=== PATIENT | female | born 1940 | race Caucasian/White ===

== ENCOUNTER 2021-12-29 19:03 | Inpatient (IN) | payer OTHER ==
[~2021-12-29] VITALS: Ht 165.1 cm; Wt 61.2 kg
[2021-12-29 19:08] VITALS: BP_SYST 96
--- NOTE | 2021-12-29 19:27 | NUR ---
Placed in room 02 . Placed on potline monitor, blood pressure machine and pulse oximeter. To gown for exam. Side rails up. Report given to MARGOTH BRUNNER
--- NOTE | 2021-12-29 19:32 | NUR ---
PT BIBA from home with c/o SOB. Pt states she has no pain. Pt reports swelling in the left arm with no pain. Reports a recent hospitalization with UTI and states shes "not urinating correctly." Pt shows no signs of resp distress, no increased work of breathing, and chest rise and fall is equal. Pt reports hx of HTN and has a pace-maker. Safety precautions are in place, and connected to monitor.
--- NOTE | 2021-12-29 19:32 | NUR ---
Dr. Valerio at bedside with pt for evaluation.
[2021-12-29 20:21] LABS: BASOPHILS % (AUTO) 0.2 % (0.0-2.0); EOSINOPHILS % (AUTO) 0.5 % (0.0-4.0); HEMATOCRIT 29.5 % (36-48); HEMOGLOBIN 10.2 g/dL (12.0-16.0); LYMPHOCYTES # (AUTO) 0.9 K/uL (1.0-5.5); LYMPHOCYTES % (AUTO) 15.4 % (20.5-51.5); MEAN CORPUSCULAR HEMOGLOBIN 33 pg (27-31); MEAN CORPUSCULAR HGB CONC 34 % (32-36); MEAN CORPUSCULAR VOLUME 96 fL (79.0-98.0); MONOCYTES # (AUTO) 0.6 K/uL (0.0-1.0); MONOCYTES % (AUTO) 10.6 % (1.7-9.3); NEUTROPHILS # (AUTO) 4.4 K/uL (1.8-7.7); NEUTROPHILS % (AUTO) 73.3 % (40.0-70.0); PLATELET COUNT (AUTO) 199 K/uL (130-430); RED BLOOD CELL COUNT(AUTO) 3.09 MIL/uL (4.2-6.2); RED CELL DISTRIBUTION WIDTH 15.5 % (9.0-15.0); WHITE BLOOD COUNT (AUTO) 5.9 K/uL (4.8-10.8)
--- NOTE | 2021-12-29 20:21 | NUR ---
Pt resting in bed with eyes open. Pt O2 sat at 99% on RA. Pt speaking in full sentences, no signs of resp distress. Safety precautions in place.
[2021-12-29 20:38] LABS: ALANINE AMINOTRANSFERASE 162 U/L (12-78); ALBUMIN 3.9 g/dL (3.4-4.8); ANION GAP 12 (5-15); ASPARTATE AMINOTRANSFERASE 147 U/L (10-37); CALCIUM 9.4 mg/dL (8.4-11.0); CREATININE 2.43 mg/dL (0.55-1.30); GLUCOSE 97 mg/dL (70-99); SODIUM SERUM 120 mmol/L (136-145); UREA NITROGEN, BLOOD 33 mg/dL (8-21)
--- NOTE | 2021-12-29 20:40 | NUR ---
[facility] lab values rec and Dr. Valerio notified.
[2021-12-29 20:41] LABS: CHLORIDE 84 mmol/L (98-107)
[2021-12-29] MEDS ORDERED: ASPIRIN 325 MG TABLET PO ONE (21:00)
[2021-12-29] MEDS ORDERED: SPIR25TA6 PO (21:07)
[2021-12-29] MEDS ORDERED: ZOLP5TAB7 PO (21:07)
[2021-12-29] MEDS ORDERED: METO50TA7 PO (21:07)
[2021-12-29] MEDS ORDERED: FURO-149 PO (21:07)
[2021-12-29] MEDS ORDERED: HYDR-4038 PO (21:07)
[2021-12-29] MEDS ORDERED: APIX2.5T PO (21:07)
[2021-12-29] MEDS ORDERED: FAMO20TA8 PO (21:07)
[2021-12-29] MEDS ORDERED: ISOS5TAB3 PO (21:07)
[2021-12-29] MEDS ORDERED: SODI1TAB3 PO (21:07)
--- NOTE | 2021-12-29 21:07 | NUR ---
Admit bed requested Patient will be admitted to care of . Admitted to TELEMETRY unit. Diagnosis CHEST PAIN AND SHORTNESS OF BREATH Inpatient (Yes or No) YES Observation (Yes or No) NO Orientation concerns or request close to nursing station (Yes or No) NO Covid Status PENDING On vent or bipap NO Isolation requirements NO Needs a sitter NO From Home (Yes or if No enter name of facility) HOME Requires Dialysis (Yes or No) NO Med Rec Completed (Yes of No) YES
--- NOTE | 2021-12-29 21:07 | NUR ---
Medication reconciliation completed with information provided by PATIENT. Any prior medication reconciliation on file was reviewed and corrected.
[2021-12-29] MEDS ORDERED: cefTRIAXone 1 GM in D5W 50 ML IV ONE (21:15)
--- NOTE | 2021-12-29 21:49 | NUR ---
Antibiotics held until blood cultures completed.
--- NOTE | 2021-12-29 21:51 | NUR ---
Lab at bedside for blood cultures.
--- NOTE | 2021-12-29 21:52 | NUR ---
Pt states that she is a DNR. Dr. Valerio aware.
[2021-12-29 22:00] LABS: PROTHROMBIN TIME 19.3 SECS (9.5-12.5)
--- NOTE | 2021-12-29 22:20 | NUR ---
Patient will be admitted to care of Dr. Rasmussen. Admitted to telemetry unit. Will go to room 105B. Belongings list completed. Complete and up to date summary report printed. SBAR report given to Isaac JUSTIN at bedside with opportunity for questions.
--- NOTE | 2021-12-29 22:30 | NUR ---
PT ADMITTED TO [facility]. PT AOX4 ABLE TO MAKE NEEDS KNOWN. RR EVEN AND UNLABORED ON RA. BOWEL SOUNDS ACTIVE. PT STATED SHE NO LONGER HAS CHEST PAIN. PT HAS CELL PHONE AND UNIT SUPERVISOR WITH HER. PT EDUCATED TO USE CALL LIGHT IF SHE NEEDS ASSISTANCE. BED ALARM ON. CALL LIGHT WITHIN REACH. WILL CONTINUE TO MONITOR.
[2021-12-29 23:01] VITALS: BP_SYST 103
[2021-12-30] MEDS: ZOLPIDEM TARTRATE 5 MG TABLET PO SCH ×2 (00:11→21:52)
[2021-12-30] MEDS: D5NS 1,000 ML IV SCH ×2 (00:11→14:26)
[2021-12-30] MEDS ORDERED: cefTRIAXone 1 GM IVPB PREMIX 50 ML IV ONE (00:16)
[2021-12-30 00:18] VITALS: BP_SYST 112
--- NOTE | 2021-12-30 01:57 | NUR ---
PT CURRENTLY ASLEEP. PT DOESN'T APPEAR TO BE IN PAIN. ALL NEED MEET AT THIS TIME. BED ALARM ON. WILL CONTINUE TO MONITOR.
--- NOTE | 2021-12-30 03:25 | NUR ---
PT HAS URGE TO URINATE. PT UNABLE TO URINATE AFTER MULTIPLE ATTEMPTS. PAGED
[2021-12-30 04:37] LABS: BILIRUBIN,URINE NEGATIVE (NEGATIVE); BLOOD, URINE 1+ (NEGATIVE); CLARITY/URINE CLEAR (CLEAR); COLOR,URINE YELLOW (YELLOW); GLUCOSE,URINE NEGATIVE (NEGATIVE); KETONES,URINE NEGATIVE (NEGATIVE); LEUKOCYTE ESTERASE ,URINE 3+ (NEGATIVE); NITRITE, URINE NEGATIVE (NEGATIVE); PROTEIN URINE 1+ (NEGATIVE); UROBILINOGEN,URINE 0.2 (0.2-1.0)
[2021-12-30 04:44] LABS: RBC,URINE 0-3 /HPF (0-3); WBC,URINE >100 /HPF (0-3)
[2021-12-30 04:45] LABS: BACTERIA,URINE MANY /HPF (None Seen)
[2021-12-30 06:44] LABS: BASOPHILS % (AUTO) 0.5 % (0.0-2.0); EOSINOPHILS % (AUTO) 0.8 % (0.0-4.0); HEMATOCRIT 31.3 % (36-48); HEMOGLOBIN 10.4 g/dL (12.0-16.0); LYMPHOCYTES # (AUTO) 0.9 K/uL (1.0-5.5); LYMPHOCYTES % (AUTO) 15.5 % (20.5-51.5); MEAN CORPUSCULAR HEMOGLOBIN 32 pg (27-31); MEAN CORPUSCULAR HGB CONC 33 % (32-36); MEAN CORPUSCULAR VOLUME 97 fL (79.0-98.0); MONOCYTES # (AUTO) 0.7 K/uL (0.0-1.0); MONOCYTES % (AUTO) 12.2 % (1.7-9.3); PLATELET COUNT (AUTO) 197 K/uL (130-430); RED BLOOD CELL COUNT(AUTO) 3.24 MIL/uL (4.2-6.2); RED CELL DISTRIBUTION WIDTH 15.7 % (9.0-15.0); WHITE BLOOD COUNT (AUTO) 5.6 K/uL (4.8-10.8)
[2021-12-30 07:12] LABS: ANION GAP 14 (5-15); CALCIUM 9.1 mg/dL (8.4-11.0); CREATININE 2.53 mg/dL (0.55-1.30); GLUCOSE 123 mg/dL (70-99); POTASSIUM 3.7 mmol/L (3.5-5.1); SODIUM SERUM 120 mmol/L (136-145); UREA NITROGEN, BLOOD 36 mg/dL (8-21)
[2021-12-30 07:57] LABS: CHLORIDE 85 mmol/L (98-107)
[2021-12-30 08:00] LABS: TOTAL IRON BIND. CAPACITY 352 ug/dL (250-450)
[2021-12-30 08:16] VITALS: BP_SYST 106
[2021-12-30] MEDS: SODIUM CHLORIDE 500 MG TABLET PO SCH (08:52)
[2021-12-30] MEDS: ISOSORBIDE DINITRATE 10 MG TABLET (ISORDIL) PO SCH ×2 (08:53→21:52)
[2021-12-30] MEDS: APIXABAN 2.5 MG TABLET PO SCH ×2 (08:55→22:03)
[2021-12-30] MEDS: SPIRONOLACTONE 25 MG TABLET (ALDACTONE) PO SCH (08:56)
[2021-12-30] MEDS: FAMOTIDINE 20 MG TABLET PO SCH ×2 (08:58→21:52)
[2021-12-30] MEDS: hydrALAZINE HCL 25 MG TABLET PO SCH ×2 (08:58→21:55)
--- NOTE | 2021-12-30 10:03 | NUR ---
CONSULTATION PAGED REASON FOR CONSULTATION:ELEVATED TROPONIN WAS CONSULT CALLED?Y PERSON WHO WAS NOTIFIED:MANUELA CONSULTING PHYSICIAN:FRIDA INGRAM SOLE STAINER SPECIALTY:CARDIO SOLE STAINER PHONE NUMBER:[phone] REQUESTING PHYSICIAN:DENISE GUALLPA
[2021-12-30] MEDS: ACETAMINOPHEN 325 MG TABLET PO PRN ×2 (11:02→14:13)
[2021-12-30 12:03] VITALS: BP_SYST 109
[2021-12-30] MEDS: traMADol HCL HCL 50 MG TABLET (ULTRAM) PO PRN ×2 (13:31→21:53)
--- NOTE | 2021-12-30 15:26 | NUR ---
Dr. Rasmussen paged for pain management twice today.
[2021-12-30 16:34] VITALS: BP_SYST 104
[2021-12-30 20:00] VITALS: BP_SYST 116
[2021-12-30] MEDS: METOPROLOL SUCCINATE 50 MG TAB.SR.24H (TOPROL XL) PO SCH (21:00)
[2021-12-30] MEDS ORDERED: ENOXAPARIN SODIUM 30 MG/0.3 ML SYRINGE SUBCUT SCH (21:00)
[2021-12-30] MEDS ORDERED: ZOLPIDEM TARTRATE 5 MG TABLET PO SCH (21:00)
[2021-12-30] MEDS: CEFEPIME 1 GM in D5W 50 ML IV SCH (21:23)
[2021-12-31 00:13] VITALS: BP_SYST 118
[2021-12-31] MEDS: ACETAMINOPHEN 325 MG TABLET PO PRN ×3 (00:31→21:30)
--- NOTE | 2021-12-31 01:45 | NUR ---
PT TRANSFERRED TO TELE PT ARRIVED ON THE UNIT. PT PLACED ON TELE, PT IS ON 3L OXIMISER. NO APPARENT DISTRESS NOTED AT THIS TIME. ALL NEEDS MET AT THIS TIME
[2021-12-31] MEDS: D5NS 1,000 ML IV SCH ×2 (02:25→14:41)
[2021-12-31] MEDS: traMADol HCL HCL 50 MG TABLET (ULTRAM) PO PRN ×2 (06:00→16:54)
[2021-12-31 07:11] LABS: BASOPHILS % (AUTO) 0.2 % (0.0-2.0); EOSINOPHILS # (AUTO) 0.1 K/uL (0.0-0.4); HEMATOCRIT 30.4 % (36-48); HEMOGLOBIN 10.3 g/dL (12.0-16.0); LYMPHOCYTES # (AUTO) 0.6 K/uL (1.0-5.5); LYMPHOCYTES % (AUTO) 9.2 % (20.5-51.5); MEAN CORPUSCULAR HEMOGLOBIN 33 pg (27-31); MEAN CORPUSCULAR HGB CONC 34 % (32-36); MEAN CORPUSCULAR VOLUME 96 fL (79.0-98.0); MONOCYTES # (AUTO) 0.5 K/uL (0.0-1.0); MONOCYTES % (AUTO) 7.4 % (1.7-9.3); NEUTROPHILS # (AUTO) 5.3 K/uL (1.8-7.7); NEUTROPHILS % (AUTO) 82.2 % (40.0-70.0); PLATELET COUNT (AUTO) 187 K/uL (130-430); RED BLOOD CELL COUNT(AUTO) 3.16 MIL/uL (4.2-6.2); RED CELL DISTRIBUTION WIDTH 15.9 % (9.0-15.0); WHITE BLOOD COUNT (AUTO) 6.5 K/uL (4.8-10.8)
[2021-12-31 07:38] LABS: ANION GAP 14 (5-15); CALCIUM 8.9 mg/dL (8.4-11.0); CHLORIDE 87 mmol/L (98-107); CREATININE 2.18 mg/dL (0.55-1.30); GLUCOSE 90 mg/dL (70-99); POTASSIUM 3.8 mmol/L (3.5-5.1); SODIUM SERUM 122 mmol/L (136-145); UREA NITROGEN, BLOOD 35 mg/dL (8-21)
--- NOTE | 2021-12-31 07:39 | NUR ---
CLOSING NOTE PT IS LYING ON HER SIDE WITH EYES CLOSED. NO APPARENT SIGNS OF DISTRESS NOTED AT THIS TIME. FALL AND SAFETY PRECAUTIONS IN PLACE AT THIS TIME. SOTELO DRAINING TO GRAVITY
--- NOTE | 2021-12-31 07:40 | NUR ---
MORNING ROUNDS: PATIENT AWAKE DURING ROUNDS. IV FLUIDS RUNNING AT RIGHT HAND INTACT.SOTELO DRAINING TO YELLOW URINE. CALL LIGHT WITH IN REACH. BED LOCKED AT LOWEST POSITION. DNR-CODE STATUS. CONTINUE TO MONITOR.
[2021-12-31 07:49] LABS: ALANINE AMINOTRANSFERASE 303 U/L (12-78); ALBUMIN 3.5 g/dL (3.4-4.8); ASPARTATE AMINOTRANSFERASE 250 U/L (10-37); THYROID STIMULATING HORMONE 3.65 uIu/mL (0.36-3.74); TOTAL BILIRUBIN 0.9 mg/dL (0.0-1.0)
--- NOTE | 2021-12-31 07:50 | NUR ---
CLOSING NOTE PT IS SEMI FOWLERS IN BED WITH EYES CLOSED. NO APPARENT DISTRESS NOTED AT THIS TIME. FALL AND SAFETY PRECAUTIONS IN PLACE. CALL LIGHT IS WITH REACH.
[2021-12-31 08:11] VITALS: BP_SYST 120
[2021-12-31 08:20] LABS: FERRITIN 862 ng/mL (15-150)
[2021-12-31] MEDS: SODIUM CHLORIDE 500 MG TABLET PO SCH (09:07)
[2021-12-31] MEDS: ISOSORBIDE DINITRATE 10 MG TABLET (ISORDIL) PO SCH ×2 (09:08→21:30)
[2021-12-31] MEDS: hydrALAZINE HCL 25 MG TABLET PO SCH ×2 (09:08→21:00)
[2021-12-31] MEDS: FAMOTIDINE 20 MG TABLET PO SCH ×2 (09:08→21:30)
[2021-12-31] MEDS: SPIRONOLACTONE 25 MG TABLET (ALDACTONE) PO SCH (09:09)
[2021-12-31] MEDS: CEFEPIME 1 GM in D5W 50 ML IV SCH ×2 (09:09→20:29)
[2021-12-31] MEDS: APIXABAN 2.5 MG TABLET PO SCH ×2 (09:10→21:38)
[2021-12-31 11:24] VITALS: BP_SYST 144
[2021-12-31 15:24] VITALS: BP_SYST 128
--- NOTE | 2021-12-31 18:48 | NUR ---
EVENING ROUNDS: PATIENT RESTING. IV FLUIDS RUNNING AT RIGHT HAND,INTACT.SOTELO IN SITU. CALL LIGHT WITH IN REACH. BED LOCKED AT LOWEST POSITION. NO ACUTE DISTRESS.
--- NOTE | 2021-12-31 19:30 | NUR ---
OPENING NOTE PT IS SITTING UP IN BED ON PHONE. NO APPARENT DISTRESS NOTED AT THIS TIME. BED IS IN LOWEST POSITION WITH FALL AND SAFETY PRECAUTIONS IN PLACE. CALL LIGHT IS WITHIN REACH. SOTELO DRAINING TO GRAVITY. IV FLUIDS RUNNING ORDERED
[2021-12-31 20:00] VITALS: BP_SYST 111
[2021-12-31] MEDS: ZOLPIDEM TARTRATE 5 MG TABLET PO SCH (21:30)
[2021-12-31] MEDS: METOPROLOL SUCCINATE 50 MG TAB.SR.24H (TOPROL XL) PO SCH (21:30)
[2021-12-31 23:25] VITALS: BP_SYST 116
[2022-01-01] MEDS: traMADol HCL HCL 50 MG TABLET (ULTRAM) PO PRN ×3 (02:03→21:32)
[2022-01-01] MEDS: D5NS 1,000 ML IV SCH (06:45)
--- NOTE | 2022-01-01 07:30 | NUR ---
MORNING ROUNDS: PATIENT AWAKE,RESTING DURING ROUNDS. IV FLUIDS RUNNING AT RIGHT HAND INTACT. CALL LIGHT WITH IN REACH. BED LOCKED AT LOWEST POSITION. BED ALARM ON. NO DISTRESS.
[2022-01-01 08:14] VITALS: BP_SYST 125
[2022-01-01] MEDS: SODIUM CHLORIDE 500 MG TABLET PO SCH (08:43)
[2022-01-01] MEDS: CEFEPIME 1 GM in D5W 50 ML IV SCH ×2 (08:43→21:37)
[2022-01-01] MEDS: ISOSORBIDE DINITRATE 10 MG TABLET (ISORDIL) PO SCH ×2 (08:44→21:32)
[2022-01-01] MEDS: FAMOTIDINE 20 MG TABLET PO SCH ×2 (08:44→21:33)
[2022-01-01] MEDS: hydrALAZINE HCL 25 MG TABLET PO SCH ×2 (08:44→21:35)
[2022-01-01] MEDS: SPIRONOLACTONE 25 MG TABLET (ALDACTONE) PO SCH (08:45)
[2022-01-01] MEDS: APIXABAN 2.5 MG TABLET PO SCH ×2 (08:45→21:35)
[2022-01-01 12:30] VITALS: BP_SYST 118
--- NOTE | 2022-01-01 14:09 | NUR ---
MD ROUNDS: DR SMITH SEEN PATIENT IN THE ROOM. WITH ORDERS DC SOTELO.
--- NOTE | 2022-01-01 15:37 | NUR ---
MD MATSON: CAREGIVER LAVONNE TIE IN HAND OF PT'S FAMILY SPOKE WITH DR SMITH OVER THE PHONE FOR UPDATES AND PLAN OF CARE. Addendum: 01/01/22 at 1724 by Faby Killian RN CORRECT TIME 16:37PM.
[2022-01-01] MEDS ORDERED: IPRATROPIUM BROM 0.5 MG/2.5 ML VIAL.NEB (ATROVENT) INH SCH (16:30)
[2022-01-01] MEDS ORDERED: IPRATROPIUM BROM 0.5 MG/2.5 ML VIAL.NEB (ATROVENT) INH ONE (16:45)
--- NOTE | 2022-01-01 16:45 | NUR ---
HHN: BREATHING TREATMENT RENDERED BY RT FOR MILD WHEEZING. PT COMFORTABLE AFTER BREATHING TREATMENT.
[2022-01-01 17:18] VITALS: BP_SYST 123
--- NOTE | 2022-01-01 17:25 | NUR ---
RADIOLOGY: PORTABLE CHEST X-RAY DONE.
--- NOTE | 2022-01-01 18:30 | NUR ---
MD ROUNDS: DR SMITH EXAM PATIENT IN THE ROOM.WITH ORDERS FOR CT CHEST W/O CONTRAST AND FOR NEPHRO CONSULT FOR ELEVATED AST/ALT.
--- NOTE | 2022-01-01 18:45 | NUR ---
DC SOTELO: REMOVED SOTELO ORDERED.
--- NOTE | 2022-01-01 19:00 | NUR ---
EVENING ROUNDS: PUT PATIENT BACK TO BED. CARE RENDERED.CALL LIGHT WITH IN REACH. BED LOCKED AT LOWEST POSITION. NO ACUTE DISTRESS.
[2022-01-01 20:01] VITALS: BP_SYST 127
[2022-01-01] MEDS: METOPROLOL SUCCINATE 50 MG TAB.SR.24H (TOPROL XL) PO SCH (21:33)
[2022-01-01] MEDS: ZOLPIDEM TARTRATE 5 MG TABLET PO SCH (23:12)
[2022-01-02] MEDS ORDERED: LIDOCAINE PATCH 5% 1 EA TP SCH
[2022-01-02] MEDS: IPRATROPIUM BROM 0.5 MG/2.5 ML VIAL.NEB (ATROVENT) INH SCH ×4 (00:05→23:00)
--- NOTE | 2022-01-02 00:21 | NUR ---
CONSULTATION CALLED FOR DR. CASAREZ FOR CONSULT OF HYPONATREMIA ORDER BY DR. CARRENOIUM SPOKE WITH EDDY
[2022-01-02] MEDS: LIDOCAINE PATCH 5% 1 EA TP SCH (00:42)
[2022-01-02 00:54] VITALS: BP_SYST 121
--- NOTE | 2022-01-02 01:31 | NUR ---
1930 Pt. in bed, aaox4, no acute distress, call light in reach 2200 Medicated for pain with no relief, given sleep med per pt request, will monitor. 2300 Pt. with severe pain in lower back ice packs helped relief but wants something stronger. Vss, call to MD, order to give Lidocaine patch 5%. 0010 Lidocaine patch applied to lower back, will monitor. 0130 Pt. sleeping, no distress
--- NOTE | 2022-01-02 04:12 | NUR ---
0400 Pt has not voided since nikos martinez'd yesterday at 1830. Pt. states she feels like she has to void, bladder feels slightlly distended, call to Dr. Rasmussen for IN/OUT cath order x1.
--- NOTE | 2022-01-02 05:27 | NUR ---
0500 Pt. ambulated to bathroom with walker, voiding adequate amt. of urine noted.
--- NOTE | 2022-01-02 05:55 | NUR ---
0600 Pt. needs met this shift, vss, ambulating well with walker. Lidoderm patch 5% in place at lower back and pt. states it helps with pain. Call light in reach.
[2022-01-02 07:50] LABS: ALANINE AMINOTRANSFERASE 206 U/L (12-78); ALBUMIN 3.3 g/dL (3.4-4.8); AMYLASE 28 U/L (0-100); ANION GAP 9 (5-15); ASPARTATE AMINOTRANSFERASE 95 U/L (10-37); CHLORIDE 91 mmol/L (98-107); CREATININE 1.01 mg/dL (0.55-1.30); GLUCOSE 97 mg/dL (70-99); LIPASE 67 U/L (73-393); POTASSIUM 4.1 mmol/L (3.5-5.1); SODIUM SERUM 124 mmol/L (136-145); TOTAL BILIRUBIN 0.9 mg/dL (0.0-1.0); UREA NITROGEN, BLOOD 18 mg/dL (8-21)
[2022-01-02 07:54] LABS: BASOPHILS % (AUTO) 0.3 % (0.0-2.0); EOSINOPHILS # (AUTO) 0.1 K/uL (0.0-0.4); HEMATOCRIT 30.6 % (36-48); HEMOGLOBIN 10.2 g/dL (12.0-16.0); LYMPHOCYTES # (AUTO) 0.6 K/uL (1.0-5.5); LYMPHOCYTES % (AUTO) 11.1 % (20.5-51.5); MEAN CORPUSCULAR HEMOGLOBIN 33 pg (27-31); MEAN CORPUSCULAR HGB CONC 33 % (32-36); MEAN CORPUSCULAR VOLUME 98 fL (79.0-98.0); MONOCYTES # (AUTO) 0.4 K/uL (0.0-1.0); MONOCYTES % (AUTO) 8.7 % (1.7-9.3); NEUTROPHILS % (AUTO) 78.9 % (40.0-70.0); PLATELET COUNT (AUTO) 189 K/uL (130-430); RED BLOOD CELL COUNT(AUTO) 3.14 MIL/uL (4.2-6.2); RED CELL DISTRIBUTION WIDTH 16.3 % (9.0-15.0)
[2022-01-02] MEDS: CEFEPIME 1 GM in D5W 50 ML IV SCH ×2 (09:35→20:22)
[2022-01-02] MEDS: SPIRONOLACTONE 25 MG TABLET (ALDACTONE) PO SCH (09:36)
[2022-01-02] MEDS: SODIUM CHLORIDE 500 MG TABLET PO SCH (09:36)
[2022-01-02] MEDS: FUROSEMIDE 40 MG/4 ML VIAL IVP SCH (09:36)
[2022-01-02] MEDS: FAMOTIDINE 20 MG TABLET PO SCH ×2 (09:37→20:40)
[2022-01-02] MEDS: hydrALAZINE HCL 25 MG TABLET PO SCH ×2 (09:37→20:40)
[2022-01-02] MEDS: ISOSORBIDE DINITRATE 10 MG TABLET (ISORDIL) PO SCH ×2 (09:37→20:40)
[2022-01-02] MEDS: APIXABAN 2.5 MG TABLET PO SCH ×2 (09:39→20:39)
[2022-01-02] MEDS ORDERED: TOLVAPTAN Non-Formulary 15 MG TABLET PO ONE (09:45)
--- NOTE | 2022-01-02 11:14 | NUR ---
INFORMED PAWAN NEIL THAT PT'S SON, DAVID FERNANDEZ WANTS MOTHER TO BE TRANSFERED TO [facility].
[2022-01-02 11:29] VITALS: BP_SYST 111
--- NOTE | 2022-01-02 13:54 | NUR ---
DISCHARGE PLANNING Received call from son Jose, ph [phone], requesting a lateral transfer to [facility]. Per Jose pt's PCP Dr Freeman was wanting pt transferred & stated had a bed at [facility], does not know would be accepting MD. Informed that Medicare does not cover transportation for Lateral transfers that pt/family would need to pay for ambulance transportation. [facility] does not want to pursue transfer at this time.
[2022-01-02] MEDS: traMADol HCL HCL 50 MG TABLET (ULTRAM) PO PRN (14:35)
[2022-01-02 15:50] VITALS: BP_SYST 122
--- NOTE | 2022-01-02 16:29 | NUR ---
Discharge Planning: DCP faxed referral [facility] P#[phone] [phone] to resume.
--- NOTE | 2022-01-02 19:01 | NUR ---
Miss Marshall has been assessed as indicated. She has been assisted extensively and frequently by staff this shift. she uses the BSC frequently as well as the bedpan. she has had brief back rubs for chronic back pain. She insists on using a heating pad from home. When she was informed that the engineers from the facility must examine it prior to use she states that her son looked it over and its is fine to use. she has been successfully treated for pain x1 thus far this shift. She completed a renal US. she is pending for a HIDA scan. She is now under a fluid restriction of 1L per 24hour period. She does not have IV access at this time. She does have an order for a midline. Multiple staff members had difficulty establishing IV access for her. This senior underwriter received a call from her home caregiver insisting that she be transferred to [facility]. Miss Marshall did confirm that this was her desire because she wanted to be where her MD was. Later her family declined secondary to the personal cost of transferring a stable patient. She is presently resting quietly
--- NOTE | 2022-01-02 19:15 | NUR ---
Handoff has been given to Rajessie
[2022-01-02 20:37] VITALS: BP_SYST 126
[2022-01-02] MEDS: METOPROLOL SUCCINATE 50 MG TAB.SR.24H (TOPROL XL) PO SCH (20:38)
[2022-01-02] MEDS: ZOLPIDEM TARTRATE 5 MG TABLET PO SCH (20:40)
[2022-01-03] VITALS (7 sets, daily range): BP systolic 108–148
[2022-01-03 07:09] LABS: BASOPHILS % (AUTO) 0.2 % (0.0-2.0); EOSINOPHILS # (AUTO) 0.1 K/uL (0.0-0.4); EOSINOPHILS % (AUTO) 1.6 % (0.0-4.0); HEMATOCRIT 31.1 % (36-48); HEMOGLOBIN 10.5 g/dL (12.0-16.0); LYMPHOCYTES # (AUTO) 0.7 K/uL (1.0-5.5); LYMPHOCYTES % (AUTO) 15.6 % (20.5-51.5); MEAN CORPUSCULAR HEMOGLOBIN 33 pg (27-31); MEAN CORPUSCULAR HGB CONC 34 % (32-36); MEAN CORPUSCULAR VOLUME 97 fL (79.0-98.0); MONOCYTES # (AUTO) 0.3 K/uL (0.0-1.0); MONOCYTES % (AUTO) 7.2 % (1.7-9.3); NEUTROPHILS # (AUTO) 3.6 K/uL (1.8-7.7); NEUTROPHILS % (AUTO) 75.4 % (40.0-70.0); PLATELET COUNT (AUTO) 195 K/uL (130-430); RED CELL DISTRIBUTION WIDTH 16.4 % (9.0-15.0); WHITE BLOOD COUNT (AUTO) 4.8 K/uL (4.8-10.8)
--- NOTE | 2022-01-03 07:30 | NUR ---
OPENING NOTE Patient awake and sitting at bedside, eating breakfast. No sign of distress, patient denies pain at this time. Updated patient on her plan of care for the day including PICC line placement and hidascan. Patient able to ambulate to the bedside commode with assist. All needs met at this time and safety checks made. Will continue to monitor.
[2022-01-03] MEDS: IPRATROPIUM BROM 0.5 MG/2.5 ML VIAL.NEB (ATROVENT) INH SCH ×3 (07:53→23:00)
[2022-01-03 07:54] LABS: ALANINE AMINOTRANSFERASE 160 U/L (12-78); ALBUMIN 3.6 g/dL (3.4-4.8); ANION GAP 9 (5-15); ASPARTATE AMINOTRANSFERASE 68 U/L (10-37); CALCIUM 9.7 mg/dL (8.4-11.0); CHLORIDE 91 mmol/L (98-107); CREATININE 0.96 mg/dL (0.55-1.30); GLUCOSE 90 mg/dL (70-99); POTASSIUM 3.8 mmol/L (3.5-5.1); SODIUM SERUM 126 mmol/L (136-145); TOTAL BILIRUBIN 1.1 mg/dL (0.0-1.0); UREA NITROGEN, BLOOD 15 mg/dL (8-21)
[2022-01-03] MEDS: CEFEPIME 1 GM in D5W 50 ML IV SCH ×2 (09:00→20:55)
[2022-01-03] MEDS: FUROSEMIDE 40 MG/4 ML VIAL IVP SCH (09:00)
[2022-01-03] MEDS: SODIUM CHLORIDE 500 MG TABLET PO SCH (09:06)
[2022-01-03] MEDS: SPIRONOLACTONE 25 MG TABLET (ALDACTONE) PO SCH (09:09)
[2022-01-03] MEDS: FAMOTIDINE 20 MG TABLET PO SCH ×2 (09:09→20:57)
[2022-01-03] MEDS: ISOSORBIDE DINITRATE 10 MG TABLET (ISORDIL) PO SCH ×2 (09:10→20:57)
[2022-01-03] MEDS: hydrALAZINE HCL 25 MG TABLET PO SCH ×2 (09:11→20:56)
[2022-01-03] MEDS: APIXABAN 2.5 MG TABLET PO SCH ×2 (09:12→21:03)
[2022-01-03] MEDS: ACETAMINOPHEN 325 MG TABLET PO PRN (09:20)
[2022-01-03] MEDS ORDERED: KETOROLAC TROMETHAMINE 15 MG VIAL IVP ONE (16:15)
--- NOTE | 2022-01-03 16:28 | NUR ---
PT HAS C/O BACK PAIN, ACHING 02/08, TORADOL IVP GIVEN AT THIS TIME. PT TAKEN TO HIDA SCAN. S/L.
--- NOTE | 2022-01-03 19:00 | NUR ---
CLOSING NOTE Patient just returned from HIDA scan. Sitting at bedside, no sign of distress and patient denies pain. IV site on right hand is clean, dry, intact and patent. Patient continues to be NPO in case further testing is required, patient verbalized understanding. Assisted patient to bedside commode, patient requires heavy assist. All needs met at this time and safety checks made. Will endorse to fast food shift lead nurse.
[2022-01-03] MEDS: METOPROLOL SUCCINATE 50 MG TAB.SR.24H (TOPROL XL) PO SCH (20:56)
[2022-01-03] MEDS: ZOLPIDEM TARTRATE 5 MG TABLET PO SCH (20:56)
[2022-01-03] MEDS: LIDOCAINE PATCH 5% 1 EA TP SCH ×2 (23:14)
[2022-01-03] MEDS: traMADol HCL HCL 50 MG TABLET (ULTRAM) PO PRN (23:14)
[2022-01-04 04:00] VITALS: BP_SYST 115
[2022-01-04 07:21] LABS: BASOPHILS % (AUTO) 0.4 % (0.0-2.0); HEMATOCRIT 29.8 % (36-48); HEMOGLOBIN 10.1 g/dL (12.0-16.0); LYMPHOCYTES # (AUTO) 0.8 K/uL (1.0-5.5); LYMPHOCYTES % (AUTO) 21.2 % (20.5-51.5); MEAN CORPUSCULAR HEMOGLOBIN 33 pg (27-31); MEAN CORPUSCULAR HGB CONC 34 % (32-36); MEAN CORPUSCULAR VOLUME 96 fL (79.0-98.0); MONOCYTES # (AUTO) 0.4 K/uL (0.0-1.0); MONOCYTES % (AUTO) 9.6 % (1.7-9.3); NEUTROPHILS # (AUTO) 2.7 K/uL (1.8-7.7); NEUTROPHILS % (AUTO) 67.8 % (40.0-70.0); PLATELET COUNT (AUTO) 179 K/uL (130-430); RED BLOOD CELL COUNT(AUTO) 3.09 MIL/uL (4.2-6.2); RED CELL DISTRIBUTION WIDTH 16.7 % (9.0-15.0); WHITE BLOOD COUNT (AUTO) 3.9 K/uL (4.8-10.8)
[2022-01-04] MEDS: IPRATROPIUM BROM 0.5 MG/2.5 ML VIAL.NEB (ATROVENT) INH SCH ×3 (07:26→23:00)
[2022-01-04 07:45] LABS: ANION GAP 9 (5-15); CALCIUM 9.7 mg/dL (8.4-11.0); CHLORIDE 92 mmol/L (98-107); GLUCOSE 105 mg/dL (70-99); SODIUM SERUM 126 mmol/L (136-145); UREA NITROGEN, BLOOD 17 mg/dL (8-21)
--- NOTE | 2022-01-04 07:47 | NUR ---
OPENING NOTE Patient in bed resting, awake and alert. Oriented x2, oriented to self and place only. Doss catheter in place draining harriet urine. Assisted patient in repositioning in bed, comfort measures provided. IV is clean, dry, intact and patent. All needs met at this time and safety checks made. Will continue to monitor.
[2022-01-04 08:00] VITALS: BP_SYST 129
[2022-01-04] MEDS: SODIUM CHLORIDE 500 MG TABLET PO SCH (09:19)
[2022-01-04] MEDS: ISOSORBIDE DINITRATE 10 MG TABLET (ISORDIL) PO SCH ×2 (09:19→21:09)
[2022-01-04] MEDS: FAMOTIDINE 20 MG TABLET PO SCH ×2 (09:19→21:07)
[2022-01-04] MEDS: SPIRONOLACTONE 25 MG TABLET (ALDACTONE) PO SCH (09:20)
[2022-01-04] MEDS: hydrALAZINE HCL 25 MG TABLET PO SCH ×2 (09:20→21:08)
[2022-01-04] MEDS: APIXABAN 2.5 MG TABLET PO SCH ×2 (09:21→21:12)
[2022-01-04 09:38] VITALS: BP_SYST 115
[2022-01-04] MEDS: FUROSEMIDE 40 MG/4 ML VIAL IVP SCH (09:43)
[2022-01-04] MEDS: CEFEPIME 1 GM in D5W 50 ML IV SCH ×2 (09:47→21:07)
[2022-01-04] MEDS: traMADol HCL HCL 50 MG TABLET (ULTRAM) PO PRN (10:00)
--- NOTE | 2022-01-04 10:01 | NUR ---
PAIN Patient complaining of back pain, 01/09. PRN medication given. Will continue to monitor.
[2022-01-04 11:26] VITALS: BP_SYST 109
[2022-01-04 15:30] VITALS: BP_SYST 112
--- NOTE | 2022-01-04 17:00 | NUR ---
PICC LINE Spoke to Dr Delaney and updated him on the patient's condition. stated to cancel the order regarding the patient's PICC placement. PICC nurse Ziyad is aware.
--- NOTE | 2022-01-04 19:50 | NUR ---
CLOSING NOTE Patient sitting up in bed, alert and oriented. Doss catheter is in place draining harriet urine. Patient is aware of her fluid restriction and dietary plan, received education and verbalized understanding. IV in right wrist is clean, dry, intact, and saline locked. All needs met at this time and safety checks made. Endorsed to hotel night auditor nurse.
[2022-01-04] MEDS: ZOLPIDEM TARTRATE 5 MG TABLET PO SCH (21:07)
[2022-01-04] MEDS: METOPROLOL SUCCINATE 50 MG TAB.SR.24H (TOPROL XL) PO SCH (21:08)
[2022-01-04 21:13] VITALS: BP_SYST 129
[2022-01-05] VITALS (7 sets, daily range): BP systolic 106–120
[2022-01-05] MEDS: LIDOCAINE PATCH 5% 1 EA TP SCH (00:33)
[2022-01-05 06:53] LABS: BASOPHILS % (AUTO) 0.6 % (0.0-2.0); EOSINOPHILS % (AUTO) 0.9 % (0.0-4.0); HEMATOCRIT 30.5 % (36-48); HEMOGLOBIN 10.4 g/dL (12.0-16.0); LYMPHOCYTES # (AUTO) 0.7 K/uL (1.0-5.5); LYMPHOCYTES % (AUTO) 14.5 % (20.5-51.5); MEAN CORPUSCULAR HEMOGLOBIN 33 pg (27-31); MEAN CORPUSCULAR HGB CONC 34 % (32-36); MEAN CORPUSCULAR VOLUME 98 fL (79.0-98.0); MONOCYTES # (AUTO) 0.4 K/uL (0.0-1.0); MONOCYTES % (AUTO) 9.2 % (1.7-9.3); NEUTROPHILS # (AUTO) 3.5 K/uL (1.8-7.7); NEUTROPHILS % (AUTO) 74.8 % (40.0-70.0); PLATELET COUNT (AUTO) 180 K/uL (130-430); RED BLOOD CELL COUNT(AUTO) 3.13 MIL/uL (4.2-6.2); RED CELL DISTRIBUTION WIDTH 16.7 % (9.0-15.0); WHITE BLOOD COUNT (AUTO) 4.7 K/uL (4.8-10.8)
[2022-01-05] MEDS: IPRATROPIUM BROM 0.5 MG/2.5 ML VIAL.NEB (ATROVENT) INH SCH ×3 (07:00→23:00)
[2022-01-05 07:15] LABS: ANION GAP 11 (5-15); CALCIUM 9.2 mg/dL (8.4-11.0); CHLORIDE 92 mmol/L (98-107); CREATININE 1.09 mg/dL (0.55-1.30); GLUCOSE 139 mg/dL (70-99); POTASSIUM 3.8 mmol/L (3.5-5.1); SODIUM SERUM 126 mmol/L (136-145); UREA NITROGEN, BLOOD 19 mg/dL (8-21)
--- NOTE | 2022-01-05 07:30 | NUR ---
MORNING ROUNDS: PATIENT RESTING DURING ROUNDS. IV TO TKO AT LEFT ARM. ROOM AIR.SOTELO DRAINING TO GUNNAR URINE IN LARGE AMOUNT. CALL LIGHT WITH IN REACH. BED LOCKED AT LOWEST POSITION. NO DISTRESS.
[2022-01-05] MEDS: hydrALAZINE HCL 25 MG TABLET PO SCH ×2 (09:43→22:49)
[2022-01-05] MEDS: CEFEPIME 1 GM in D5W 50 ML IV SCH ×2 (09:43→22:52)
[2022-01-05] MEDS: FUROSEMIDE 40 MG/4 ML VIAL IVP SCH (09:44)
[2022-01-05] MEDS: ISOSORBIDE DINITRATE 10 MG TABLET (ISORDIL) PO SCH ×2 (09:44→22:48)
[2022-01-05] MEDS: SODIUM CHLORIDE 500 MG TABLET PO SCH (09:45)
[2022-01-05] MEDS: FAMOTIDINE 20 MG TABLET PO SCH ×2 (09:45→22:42)
[2022-01-05] MEDS: APIXABAN 2.5 MG TABLET PO SCH ×2 (09:45→22:51)
[2022-01-05] MEDS: SPIRONOLACTONE 25 MG TABLET (ALDACTONE) PO SCH (09:46)
--- NOTE | 2022-01-05 10:30 | NUR ---
TO CHAIR: PUT PATIENT TO CHAIR WITH MODERATE ASSISTANCE.
--- NOTE | 2022-01-05 12:45 | NUR ---
Discharge Planning: DCP followed up with Gaby at [facility] P#[phone] [phone] will resume care.
[2022-01-05] MEDS: ACETAMINOPHEN 325 MG TABLET PO PRN (13:44)
--- NOTE | 2022-01-05 18:30 | NUR ---
EVENING ROUNDS: PATIENT HAVING DINNER. IV TO TKO. SOTELO IN SITU. CALL LIGHT WITH IN REACH. BED LOCKED AT LOWEST POSITION. NO ACUTE DISTRESS.
[2022-01-05] MEDS: traMADol HCL HCL 50 MG TABLET (ULTRAM) PO PRN (19:53)
[2022-01-05] MEDS ORDERED: SENNOSIDES 8.6 MG TABLET PO PRN (22:30)
[2022-01-05] MEDS: ZOLPIDEM TARTRATE 5 MG TABLET PO SCH (22:41)
[2022-01-05] MEDS: METOPROLOL SUCCINATE 50 MG TAB.SR.24H (TOPROL XL) PO SCH (22:44)
[2022-01-06] MEDS: LIDOCAINE PATCH 5% 1 EA TP SCH (01:39)
--- NOTE | 2022-01-06 03:30 | NUR ---
RESTLESS, CAN'T SLEEP Patient reports she can't sleep, she doesn't know why today, she is not comfortable. She insisted on sitting up with legs dangle and said this would decrease her back pain. I reviewed safety, side effect of meds can make her drowsy - dizzy and she insisted she wants help sitting up. I provided assistance and she is sitting up w/legs dangle a cover over her back, a chair and pillow in front of her and call light w/in reach.
[2022-01-06] MEDS: traMADol HCL HCL 50 MG TABLET (ULTRAM) PO PRN ×2 (05:05→13:21)
[2022-01-06] MEDS: IPRATROPIUM BROM 0.5 MG/2.5 ML VIAL.NEB (ATROVENT) INH SCH ×3 (07:00→23:00)
--- NOTE | 2022-01-06 07:35 | NUR ---
MORNING ROUNDS: PATIENT AWAKE,HAVING BREAKFAST. CALL LIGHT WITH IN REACH. HARD STICK.NO IV ACCESS THIS TIME. SOTELO DRAINING TO GUNNAR URINE. BED LOCKED AT LOWEST POSITION. NO ACUTE DISTRESS.
[2022-01-06 08:00] VITALS: BP_SYST 120
--- NOTE | 2022-01-06 08:27 | NUR ---
CONSULT UROLOGY URINARY RETENTION WILLIE VILLALPANDO [phone] TAPIA'S OFFICE
[2022-01-06] MEDS: ISOSORBIDE DINITRATE 10 MG TABLET (ISORDIL) PO SCH ×2 (08:48→22:28)
[2022-01-06] MEDS: FAMOTIDINE 20 MG TABLET PO SCH ×2 (08:48→22:28)
[2022-01-06] MEDS: SODIUM CHLORIDE 500 MG TABLET PO SCH (08:49)
[2022-01-06] MEDS: SPIRONOLACTONE 25 MG TABLET (ALDACTONE) PO SCH (08:49)
[2022-01-06] MEDS: hydrALAZINE HCL 25 MG TABLET PO SCH ×2 (08:49→22:29)
[2022-01-06] MEDS: FUROSEMIDE 40 MG/4 ML VIAL IVP SCH (08:50)
[2022-01-06] MEDS: APIXABAN 2.5 MG TABLET PO SCH ×2 (08:51→22:32)
--- NOTE | 2022-01-06 09:30 | NUR ---
IV NOTES: IV RE SITED AT RIGHT WRIST USING G#22,IV LASIX GIVEN ORDERED.
[2022-01-06 11:22] VITALS: BP_SYST 116
--- NOTE | 2022-01-06 14:05 | NUR ---
RN FIRST ASSISTANT FOR URO ROUNDS: IMMANUEL FRASER CAME TO SEE PATIENT AND DISCUSSED PLAN OF CARE,PATIENT AGREEABLE.WILL DC SOTELO IN 4-6HOURS RENAL US ANY RETENTION ORDERED.
--- NOTE | 2022-01-06 15:00 | NUR ---
BSC: ASSISTED PATIENT TO BSC.THEN ASSISTED BACK TO BED.
[2022-01-06 15:37] VITALS: BP_SYST 138
[2022-01-06] MEDS: ACETAMINOPHEN 325 MG TABLET PO PRN (18:34)
--- NOTE | 2022-01-06 18:50 | NUR ---
EVENING ROUNDS: PATIENT ASSISTED BACK TO BED.DUE PO TYLENOL GIVEN PER PATIENT'S REQUEST FOR HEADACHE. SAFETY MEASURES RENDERED. WILL DISCONTINUE SOTELO ORDERED THEN 4-6HOURS RENAL US.CALL LIGHT WITH IN REACH. BED LOCKED AT LOWEST POSITION.
--- NOTE | 2022-01-06 19:00 | NUR ---
RUSSELL SOTELO: RUSSELL SOTELO ORDERED.
--- NOTE | 2022-01-06 19:50 | NUR ---
Dr. Kesslerium rounds At nursing station to see patient
[2022-01-06 20:00] VITALS: BP_SYST 103
[2022-01-06] MEDS: ZOLPIDEM TARTRATE 5 MG TABLET PO SCH (22:28)
[2022-01-06] MEDS: METOPROLOL SUCCINATE 50 MG TAB.SR.24H (TOPROL XL) PO SCH (22:29)
[2022-01-07] VITALS (7 sets, daily range): BP systolic 92–145
[2022-01-07] MEDS: LIDOCAINE PATCH 5% 1 EA TP SCH ×2 (00:19→23:09)
--- NOTE | 2022-01-07 01:41 | NUR ---
S/P REMOVAL F/C; NO VOID F/C REMOVED 1899 AND PATIENT HAS NOT VOIDED. PAGED DR TAPIA AT TWO NUMBERS; LEFT VOICE MAIL AT [phone] UNIT SEC PROVIDED CELL NUMBER [phone] (IT RANG AND THERE WAS NO ANSWER)
--- NOTE | 2022-01-07 03:35 | NUR ---
Dr. Argueta, Dr. Rasmussen Paged 's waiting for call back
--- NOTE | 2022-01-07 04:25 | NUR ---
F/C Per Patricia Steven written order, Doss catheter was inserted. Explained procedure to patient, and she agreed; tolerated. Obtained harriet colored urine return upon insertion; 280ml, sent sample to lab.
[2022-01-07 06:38] LABS: BASOPHILS % (AUTO) 0.3 % (0.0-2.0); EOSINOPHILS # (AUTO) 0.1 K/uL (0.0-0.4); EOSINOPHILS % (AUTO) 1.3 % (0.0-4.0); HEMATOCRIT 29.9 % (36-48); LYMPHOCYTES # (AUTO) 0.7 K/uL (1.0-5.5); MEAN CORPUSCULAR HEMOGLOBIN 32 pg (27-31); MEAN CORPUSCULAR HGB CONC 34 % (32-36); MEAN CORPUSCULAR VOLUME 97 fL (79.0-98.0); MONOCYTES # (AUTO) 0.4 K/uL (0.0-1.0); MONOCYTES % (AUTO) 9.2 % (1.7-9.3); NEUTROPHILS # (AUTO) 3.5 K/uL (1.8-7.7); NEUTROPHILS % (AUTO) 74.2 % (40.0-70.0); PLATELET COUNT (AUTO) 140 K/uL (130-430); RED CELL DISTRIBUTION WIDTH 16.8 % (9.0-15.0); WHITE BLOOD COUNT (AUTO) 4.8 K/uL (4.8-10.8)
[2022-01-07] MEDS: IPRATROPIUM BROM 0.5 MG/2.5 ML VIAL.NEB (ATROVENT) INH SCH ×3 (07:00→23:19)
[2022-01-07 07:04] LABS: ALANINE AMINOTRANSFERASE 70 U/L (12-78); ALBUMIN 3.4 g/dL (3.4-4.8); ANION GAP 9 (5-15); ASPARTATE AMINOTRANSFERASE 23 U/L (10-37); CALCIUM 9.9 mg/dL (8.4-11.0); CHLORIDE 90 mmol/L (98-107); CREATININE 0.94 mg/dL (0.55-1.30); GLUCOSE 94 mg/dL (70-99); POTASSIUM 3.7 mmol/L (3.5-5.1); SODIUM SERUM 125 mmol/L (136-145); TOTAL BILIRUBIN 1.1 mg/dL (0.0-1.0); UREA NITROGEN, BLOOD 20 mg/dL (8-21)
[2022-01-07 07:39] LABS: BILIRUBIN,URINE NEGATIVE (NEGATIVE); COLOR,URINE YELLOW (YELLOW); GLUCOSE,URINE NEGATIVE (NEGATIVE); KETONES,URINE NEGATIVE (NEGATIVE); LEUKOCYTE ESTERASE ,URINE 1+ (NEGATIVE); NITRITE, URINE NEGATIVE (NEGATIVE); PROTEIN URINE TRACE (NEGATIVE); UROBILINOGEN,URINE 0.2 (0.2-1.0)
--- NOTE | 2022-01-07 07:45 | NUR ---
NOTES PATIENT AAOX 3-4. VITALS SIGNS STABLE. AFEBRILE. LUNGS BILATERALLY CLEAR BUT DIMINISHED AT THE BASES. ABDOMEN SOFT AND NON DISTENDED. HAS IV ACCESS ON THE RT HAND #22. SALINE LOCKED. PATENT/DRY. HAS SOTELO CATHETER DRAINING CLEAR YELLOW URINE. CALL LIGHTS WITHIN REACH. BED LOW POSITION, ALARMED AND LOCKED. WILL CONTINUE
[2022-01-07 07:48] LABS: BLOOD, URINE TRACE (NEGATIVE); CLARITY/URINE SLIGHTLY HAZY (CLEAR)
[2022-01-07 08:27] LABS: BACTERIA,URINE MODERATE /HPF (None Seen); RBC,URINE 0-3 /HPF (0-3)
--- NOTE | 2022-01-07 08:40 | NUR ---
LISBET MATHEMATICAL TECHNICIAN OF DR TAPIA CAME AND SAID NO MORE ULTRASOUND EITHER RENAL OR ABDOMEN, BECAUSE SOTELO INSERTED AT 0100AM BY THE ANGIE NURSE. OUTPUT ABOUT 280CC CLEAR YELLOW URINE.
[2022-01-07] MEDS: FUROSEMIDE 40 MG/4 ML VIAL IVP SCH (09:08)
[2022-01-07] MEDS: SODIUM CHLORIDE 500 MG TABLET PO SCH (09:08)
[2022-01-07] MEDS: FAMOTIDINE 20 MG TABLET PO SCH ×2 (09:08→21:46)
[2022-01-07] MEDS: hydrALAZINE HCL 25 MG TABLET PO SCH ×2 (09:09→21:44)
[2022-01-07] MEDS: ISOSORBIDE DINITRATE 10 MG TABLET (ISORDIL) PO SCH ×2 (09:10→21:47)
[2022-01-07] MEDS: SPIRONOLACTONE 25 MG TABLET (ALDACTONE) PO SCH (09:10)
[2022-01-07] MEDS: APIXABAN 2.5 MG TABLET PO SCH ×2 (09:12→21:46)
[2022-01-07] MEDS: traMADol HCL HCL 50 MG TABLET (ULTRAM) PO PRN (10:48)
--- NOTE | 2022-01-07 12:09 | NUR ---
DR SMITH REQUESTED TO LET DR TAPIA HIMSELF SEE THE PATIENT.
--- NOTE | 2022-01-07 12:13 | NUR ---
NOTES: called Dr. Argueta exchange, per Dr. thompson to have Dr. Argueta to see pt. eventhou LEAN MANUFACTURING COORDINATOR saw pt. already. Nurse Abby nichols. talked to jair.
[2022-01-07] MEDS ORDERED: TAMSULOSIN HCL 0.4 MG CAP PO ONE (12:30)
--- NOTE | 2022-01-07 12:30 | NUR ---
DR TAPIA FOLLOW UP. AWAITING TO CALL BACK.
--- NOTE | 2022-01-07 15:00 | NUR ---
ASSISTED BY ARRON ROCHA TO THE BEDSIDE COMMODE. HAD BM SOFT MODERATE STOOL.
--- NOTE | 2022-01-07 16:49 | NUR ---
PATIENT STABLE. RESTING. NO COMPLAINED MADE SO FAR.
--- NOTE | 2022-01-07 19:16 | NUR ---
ENDORSED TO INCOMING NURSE JB JUSTIN.
[2022-01-07] MEDS: METOPROLOL SUCCINATE 50 MG TAB.SR.24H (TOPROL XL) PO SCH (21:48)
[2022-01-07] MEDS: ZOLPIDEM TARTRATE 5 MG TABLET PO SCH (21:48)
[2022-01-08] VITALS (7 sets, daily range): BP systolic 92–125
[2022-01-08] MEDS: IPRATROPIUM BROM 0.5 MG/2.5 ML VIAL.NEB (ATROVENT) INH SCH (07:00)
--- NOTE | 2022-01-08 08:00 | NUR ---
NOTES PATIENT ALERT AWAKE X 2-3. VITALS SIGNS STABLE. AFEBRILE. LUNGS BILATERALLY CLEAR BUT DIMINISHED AT THE BASES. ABDOMEN SOFT AND NON DISTENDED. LEFT ARM SWOLLEN. ELEVATED ON THE PILLOW. IV ACCESS RT HAND INFILTRATED. CALL LIGHTS WITHIN REACH. BED LOW POSITION, ALARMED AND LOCKED. WILL CONTINUE
--- NOTE | 2022-01-08 08:30 | NUR ---
DR SMILEY SAID YOU CAN GAVE LASIX IV BUT NOT BLOOD PRESSURE MEDICATION.
[2022-01-08] MEDS: hydrALAZINE HCL 25 MG TABLET PO SCH ×2 (09:00→21:32)
--- NOTE | 2022-01-08 09:00 | NUR ---
DUE MEDS GIVEN AT THIS TIME.
[2022-01-08] MEDS: SODIUM CHLORIDE 500 MG TABLET PO SCH (09:20)
[2022-01-08] MEDS: APIXABAN 2.5 MG TABLET PO SCH ×2 (09:20→21:37)
[2022-01-08] MEDS: ISOSORBIDE DINITRATE 10 MG TABLET (ISORDIL) PO SCH ×2 (09:21→21:37)
[2022-01-08] MEDS: FAMOTIDINE 20 MG TABLET PO SCH ×2 (09:21→21:37)
[2022-01-08] MEDS: SPIRONOLACTONE 25 MG TABLET (ALDACTONE) PO SCH (09:27)
[2022-01-08] MEDS: FUROSEMIDE 40 MG/4 ML VIAL IVP SCH (09:28)
--- NOTE | 2022-01-08 12:00 | NUR ---
NEW IV ACCESS PLACED ON THE RT AC #20.
[2022-01-08] MEDS: traMADol HCL HCL 50 MG TABLET (ULTRAM) PO PRN (12:20)
--- NOTE | 2022-01-08 14:00 | NUR ---
DR SMITH CAME AND SEE THE PATIENT. INFORMED LOTUS JUSTIN TO TALKED TO CAREGIVER, IF SHE COULD DO SOTELO CATHETER CARE. AND SEE DR TAPIA FOR INSTRUCTIONS ON SELF CATHETERIZATION. UPON DISCONTINUE OF SOTELO CATHETER. PHONE NUMBER OF ABDIRASHID BAI [phone]
[2022-01-08] MEDS ORDERED: traMADol HCL HCL 50 MG TABLET (ULTRAM) PO PRN (14:30)
[2022-01-08] MEDS ORDERED: IPRATROPIUM BROM 0.5 MG/2.5 ML VIAL.NEB (ATROVENT) INH PRN (15:00)
--- NOTE | 2022-01-08 15:12 | NUR ---
PATIENT STABLE. NO DISCOMFORT NOR PAIN NOTED.
--- NOTE | 2022-01-08 16:00 | NUR ---
RESTING AND WATCHING TV.
[2022-01-08] MEDS ORDERED: TAMSULOSIN HCL 0.4 MG CAP PO SCH (18:00)
--- NOTE | 2022-01-08 18:17 | NUR ---
PATIENT EATING DINNER AT THIS TIME. NO PAIN NOR DISCOMFORTS NOTED.
[2022-01-08] MEDS: METOPROLOL SUCCINATE 50 MG TAB.SR.24H (TOPROL XL) PO SCH (21:38)
--- NOTE | 2022-01-08 22:52 | NUR ---
LIDOCAINE PATCH REQUEST FOR HOME PRESCRIPTION PER PATIENT SHE SAYS THEY REALLY HELP AND WOULD LIKE THE DOCTOR TO PRESCRIBE THEM. JB GUZMAN RN
[2022-01-08] MEDS: LIDOCAINE PATCH 5% 1 EA TP SCH (23:54)
[2022-01-09] MEDS: ACETAMINOPHEN 325 MG TABLET PO PRN ×2 (02:00→08:39)
[2022-01-09 07:40] LABS: BASOPHILS % (AUTO) 0.3 % (0.0-2.0); EOSINOPHILS % (AUTO) 0.7 % (0.0-4.0); HEMATOCRIT 31.2 % (36-48); HEMOGLOBIN 10.3 g/dL (12.0-16.0); LYMPHOCYTES # (AUTO) 0.6 K/uL (1.0-5.5); LYMPHOCYTES % (AUTO) 14.7 % (20.5-51.5); MEAN CORPUSCULAR HEMOGLOBIN 32 pg (27-31); MEAN CORPUSCULAR HGB CONC 33 % (32-36); MEAN CORPUSCULAR VOLUME 98 fL (79.0-98.0); MONOCYTES # (AUTO) 0.4 K/uL (0.0-1.0); MONOCYTES % (AUTO) 9.3 % (1.7-9.3); NEUTROPHILS # (AUTO) 3.3 K/uL (1.8-7.7); PLATELET COUNT (AUTO) 124 K/uL (130-430); RED BLOOD CELL COUNT(AUTO) 3.19 MIL/uL (4.2-6.2); RED CELL DISTRIBUTION WIDTH 16.9 % (9.0-15.0); WHITE BLOOD COUNT (AUTO) 4.4 K/uL (4.8-10.8)
[2022-01-09 07:51] LABS: ANION GAP 8 (5-15); CALCIUM 9.5 mg/dL (8.4-11.0); CHLORIDE 90 mmol/L (98-107); CREATININE 1.08 mg/dL (0.55-1.30); GLUCOSE 119 mg/dL (70-99); POTASSIUM 4.1 mmol/L (3.5-5.1); SODIUM SERUM 125 mmol/L (136-145); UREA NITROGEN, BLOOD 27 mg/dL (8-21)
[2022-01-09 08:00] VITALS: BP_SYST 104
[2022-01-09] MEDS: SPIRONOLACTONE 25 MG TABLET (ALDACTONE) PO SCH (08:38)
[2022-01-09] MEDS: FUROSEMIDE 40 MG/4 ML VIAL IVP SCH (08:38)
[2022-01-09] MEDS: ISOSORBIDE DINITRATE 10 MG TABLET (ISORDIL) PO SCH (08:38)
[2022-01-09] MEDS: SODIUM CHLORIDE 500 MG TABLET PO SCH (08:39)
[2022-01-09] MEDS: FAMOTIDINE 20 MG TABLET PO SCH (08:39)
[2022-01-09] MEDS: APIXABAN 2.5 MG TABLET PO SCH (08:46)
[2022-01-09] MEDS: hydrALAZINE HCL 25 MG TABLET PO SCH (08:46)
[2022-01-09 12:00] VITALS: BP_SYST 110
[2022-01-09 12:40] VITALS: BP_SYST 110
== END 2022-01-09 15:20 | disposition home health service (06) | DRG 640 ==
LOC: SED 19:03 → STU 20:59
PROVIDERS: ADMIT Family Medicine; ATTEND Family Medicine
DX: E86.0 Dehydration (principal); N17.0 Acute kidney failure with tubular necrosis; I42.0 Dilated cardiomyopathy; I24.8 Other forms of acute ischemic heart disease; N39.0 Urinary tract infection, site not specified; E87.1 Hypo-osmolality and hyponatremia; D64.9 Anemia, unspecified; R33.9 Retention of urine, unspecified; Z66 Do not resuscitate; Z20.822 Contact with and (suspected) exposure to COVID-19; Z96.643 Presence of artificial hip joint, bilateral; K80.20 Calculus of gallbladder without cholecystitis without obstruction; I11.0 Hypertensive heart disease with heart failure; I50.9 Heart failure, unspecified; N31.9 Neuromuscular dysfunction of bladder, unspecified; Z95.810 Presence of automatic (implantable) cardiac defibrillator; Z87.440 Personal history of urinary (tract) infections
CPT/HCPCS: 36415; 71045; 71250-TC; 76376; 76700-TC; 76770; 78226; 80048; 80053; 81000; 82150; 82607; 82728; 82746; 83540; 83550; 83605; 83690; 83735; 83880; 84443; 84484; 85025; 85379; 85610-TC; 85730-TC; 87040; 87086; 93005; 93306; 93971; 94640; 94760; 97110-GP; 97116-GP; 97530-GP; 99285; A9537; G0378; J0692; J0696; J1885; J1940; J7060